=== PATIENT | female | born 1970 | race African-American/Black ===

== ENCOUNTER 2020-07-23 09:16 | Emergency (ER) | payer MEDICAID, OTHER ==
[~2020-07-23] VITALS: Ht 162.6 cm; Wt 68.5 kg
[2020-07-23 09:16] VITALS: BP 115/65
[2020-07-23] MEDS ORDERED: DEXAMETHASONE SOD PHOSPHATE 10 MG/ML VIAL ONE (09:39)
[2020-07-23] MEDS ORDERED: MORPHINE SULFATE INJ 4 MG/ML DISP.SYRIN ONE (09:39)
[2020-07-23] MEDS ORDERED: ONDANSETRON 4 MG TAB.RAPDIS ONE ×2 (09:40→09:49)
[2020-07-23] MEDS ORDERED: LORAZEPAM INJ 2 MG/ML VIAL ONE (09:40)
[2020-07-23] MEDS: MORPHINE SULFATE INJ 4 MG/ML DISP.SYRIN IM ONE (09:53)
[2020-07-23] MEDS: LORAZEPAM INJ 2 MG/ML VIAL IM ONE (09:53)
[2020-07-23] MEDS: ONDANSETRON 4 MG TAB.RAPDIS SL ONE (09:54)
[2020-07-23] MEDS: DEXAMETHASONE SOD PHOSPHATE 10 MG/ML VIAL IM ONE (09:54)
== END 2020-07-23 10:12 | disposition home or self-care (01) ==
LOC: ER 09:33
DX: M54.30 Sciatica, unspecified side (principal); M54.9 Dorsalgia, unspecified; Z88.6 Allergy status to analgesic agent; Z88.8 Allergy status to other drugs, medicaments and biological substances
CPT/HCPCS: 96372 ×2; 99284; J1100; J2060; J2270; Q0162

== ENCOUNTER 2020-07-30 13:40 | Emergency (ER) | payer OTHER ==
[~2020-07-30] VITALS: Ht 162.6 cm; Wt 68.9 kg
--- NOTE | 2020-07-30 13:45 | NUR ---
pt bib self c/o lower back pain x 2 days 810 pain scale. vs checked. awaiting md cohen.
[2020-07-30] MEDS ORDERED: ONDANSETRON 4 MG TAB.RAPDIS SL ONE (14:30)
[2020-07-30] MEDS ORDERED: MORPHINE SULFATE INJ 2 MG/ML DISP.SYRIN IM ONE (14:30)
[2020-07-30] MEDS ORDERED: ONDANSETRON 4 MG TAB.RAPDIS ONE (14:33)
[2020-07-30] MEDS ORDERED: MORPHINE SULFATE INJ 4 MG/ML DISP.SYRIN ONE (14:33)
[2020-07-30 15:22] VITALS: BP 121/88
--- NOTE | 2020-07-30 15:22 | NUR ---
Patient discharged to home in stable condition. Written and verbal after care instructions given. Patient verbalizes understanding of instruction.
== END 2020-07-30 15:22 | disposition home or self-care (01) ==
LOC: ER 13:46
DX: M54.41 Lumbago with sciatica, right side (principal); Z88.6 Allergy status to analgesic agent; Z88.8 Allergy status to other drugs, medicaments and biological substances
CPT/HCPCS: 96372; 99283; J2270; Q0162

== ENCOUNTER 2020-08-06 13:40 | Emergency (ER) | payer OTHER ==
[~2020-08-06] VITALS: Ht 162.6 cm; Wt 68.0 kg
[2020-08-06 13:45] VITALS: BP 125/70
--- NOTE | 2020-08-06 13:45 | NUR ---
pt daliaseanum c/o toothache x2days. states that 'i broke a tooth'. vs checked. awaiting md cohen.
--- NOTE | 2020-08-06 14:24 | NUR ---
Patient discharged to home in stable condition. Written and verbal after care instructions given. Patient verbalizes understanding of instruction.
== END 2020-08-06 14:25 | disposition home or self-care (01) ==
LOC: ER 13:43
DX: K08.89 Other specified disorders of teeth and supporting structures (principal); K02.9 Dental caries, unspecified; G43.909 Migraine, unspecified, not intractable, without status migrainosus; Z88.6 Allergy status to analgesic agent

== ENCOUNTER 2020-08-12 12:20 | Emergency (ER) | payer OTHER ==
[~2020-08-12] VITALS: Ht 162.6 cm; Wt 68.0 kg
--- NOTE | 2020-08-12 12:35 | NUR ---
bib self c/o upper and lower back pain Hx sciatica, takes norco 5/325mg. c/o 06/24 pain. vs checked. awaiting md cohen.
[2020-08-12] MEDS ORDERED: MORPHINE SULFATE INJ 10 MG/ML DISP.SYRIN IM ONE (13:00)
[2020-08-12] MEDS ORDERED: MORPHINE SULFATE INJ 4 MG/ML DISP.SYRIN ONE (13:07)
[2020-08-12 13:17] VITALS: BP 156/78
== END 2020-08-12 13:17 | disposition home or self-care (01) ==
LOC: ER 12:29
DX: M54.41 Lumbago with sciatica, right side (principal); G43.909 Migraine, unspecified, not intractable, without status migrainosus; Z88.6 Allergy status to analgesic agent; Z88.8 Allergy status to other drugs, medicaments and biological substances
CPT/HCPCS: 96372; 99283; J2270

== ENCOUNTER 2020-08-23 16:40 | Emergency (ER) | payer OTHER ==
[~2020-08-23] VITALS: Ht 162.6 cm; Wt 68.5 kg
[2020-08-23 17:01] VITALS: BP 128/101
[2020-08-23] MEDS ORDERED: HYDROCODONE/APAP 5/325MG TABLET PO ONE (17:30)
[2020-08-23] MEDS ORDERED: HYDROCODONE/APAP 5/325MG TABLET ONE (17:37)
--- NOTE | 2020-08-23 17:59 | NUR ---
PATIENT A/OX4, BREATHING EVEN AND UNLABORED, NO SOB NOTED. NEEDS ATTENDED. Patient discharged to home in stable condition. Written and verbal after care instructions given. Patient verbalizes understanding of instruction.
== END 2020-08-23 17:59 | disposition home or self-care (01) ==
LOC: ER 16:44
DX: K08.89 Other specified disorders of teeth and supporting structures (principal); G43.909 Migraine, unspecified, not intractable, without status migrainosus; Z76.5 Malingerer [conscious simulation]; Z88.6 Allergy status to analgesic agent; Z88.8 Allergy status to other drugs, medicaments and biological substances

== ENCOUNTER 2020-08-31 10:20 | Emergency (ER) | payer OTHER ==
[~2020-08-31] VITALS: Ht 165.1 cm; Wt 65.8 kg
--- NOTE | 2020-08-31 10:36 | NUR ---
pt refused to be seen at this time
[2020-08-31 10:54] VITALS: BP 134/77
[2020-08-31] MEDS ORDERED: HYDROCODONE/APAP 5/325MG TABLET PO ONE (11:00)
[2020-08-31] MEDS ORDERED: HYDROCODONE/APAP 5/325MG TABLET ONE (11:14)
--- NOTE | 2020-08-31 11:28 | NUR ---
Patient eloped from facility. ER MD notified.
== END 2020-08-31 11:29 | disposition left against medical advice (07) ==
LOC: ER 10:25
DX: M54.9 Dorsalgia, unspecified (principal); G43.909 Migraine, unspecified, not intractable, without status migrainosus; Z88.6 Allergy status to analgesic agent; Z88.8 Allergy status to other drugs, medicaments and biological substances

== ENCOUNTER 2020-09-07 10:08 | Emergency (ER) | payer OTHER ==
[~2020-09-07] VITALS: Ht 162.6 cm; Wt 65.8 kg
[2020-09-07 11:30] VITALS: BP 130/79
[2020-09-07] MEDS ORDERED: HYDROCODONE/APAP 5/325MG TABLET ONE (12:17)
--- NOTE | 2020-09-07 12:22 | NUR ---
Patient discharged to home in stable condition. Written and verbal after care instructions given. Patient verbalizes understanding of instruction. Pt ambulatory with a steady gait. Pt is picked up by her
[2020-09-07] MEDS ORDERED: HYDROCODONE/APAP 5/325MG TABLET PO ONE (12:30)
== END 2020-09-07 12:23 | disposition home or self-care (01) ==
LOC: ER 10:11
DX: M54.41 Lumbago with sciatica, right side (principal); G89.29 Other chronic pain; G43.909 Migraine, unspecified, not intractable, without status migrainosus; Z88.6 Allergy status to analgesic agent

== ENCOUNTER 2020-10-10 11:58 | Emergency (ER) | payer OTHER ==
[~2020-10-10] VITALS: Ht 162.6 cm; Wt 68.0 kg
[2020-10-10 12:10] VITALS: BP 134/81
--- NOTE | 2020-10-10 12:49 | NUR ---
PT LEFT WITHOUT BEING SEEN BY ER . AWARE.
== END 2020-10-10 12:51 | disposition left against medical advice (07) ==
LOC: ER 12:09
DX: M54.9 Dorsalgia, unspecified (principal); Z53.21 Procedure and treatment not carried out due to patient leaving prior to being seen by health care provider

== ENCOUNTER 2020-10-15 15:54 | Emergency (ER) | payer OTHER ==
[~2020-10-15] VITALS: Ht 162.6 cm; Wt 73.0 kg
--- NOTE | 2020-10-15 16:32 | NUR ---
CALLED TO TRIAGE NO ANSWER.
--- NOTE | 2020-10-15 16:50 | NUR ---
CALLED TO TRIAGE NO ANSWER.
--- NOTE | 2020-10-15 16:56 | NUR ---
LEFT BEFORE TRIAGE. MD AWARE.
[2020-10-15 17:10] VITALS: BP 125/70
== END 2020-10-15 18:05 | disposition left against medical advice (07) ==
LOC: ER 16:00
DX: Z53.21 Procedure and treatment not carried out due to patient leaving prior to being seen by health care provider (principal); G89.29 Other chronic pain; M54.5 Low back pain; G43.909 Migraine, unspecified, not intractable, without status migrainosus

== ENCOUNTER 2020-10-20 10:26 | Emergency (ER) | payer OTHER ==
[~2020-10-20] VITALS: Ht 162.6 cm; Wt 72.6 kg
[2020-10-20 10:33] VITALS: BP 118/80
[2020-10-20] MEDS ORDERED: HYDROCODONE/APAP 10/325MG TABLET ONE (11:09)
[2020-10-20] MEDS: HYDROCODONE/APAP 10/325MG TABLET PO ONE (11:10)
--- NOTE | 2020-10-20 11:10 | NUR ---
Patient discharged to home in stable condition. Written and verbal after care instructions given. Patient verbalizes understanding of instruction.
== END 2020-10-20 11:11 | disposition home or self-care (01) ==
LOC: ER 10:30
DX: M54.41 Lumbago with sciatica, right side (principal); M54.42 Lumbago with sciatica, left side; G89.29 Other chronic pain; G43.909 Migraine, unspecified, not intractable, without status migrainosus; Z76.0 Encounter for issue of repeat prescription; Z88.6 Allergy status to analgesic agent

== ENCOUNTER 2020-10-29 17:09 | Emergency (ER) | payer OTHER ==
[~2020-10-29] VITALS: Ht 162.6 cm; Wt 72.6 kg
[2020-10-29 17:48] VITALS: BP 137/74
--- NOTE | 2020-10-29 17:50 | NUR ---
PATIENT CAME TO ER BED 1 WITH COMPLAIN OF CHRONIC BACK PAIN. PER PATIENT SHE HAS AN APPOINTMENT NEXT FRIDAY BUT THE PATIENT IS WORST TODAY AND WANT TO GET PAIN MEDICATINON AND PRESCIPTION. PATIENT IS ALERT AND ORIENTED X4. IN ROOM AIR AND DENIES SOB. RESPIRATION REGULAR AND UNLABORED.
[2020-10-29] MEDS ORDERED: HYDROCODONE/APAP 5/325MG TABLET ONE (18:06)
[2020-10-29] MEDS ORDERED: ONDANSETRON 4 MG TAB.RAPDIS ONE (18:06)
[2020-10-29] MEDS ORDERED: HYDR-4303 PO (18:08)
[2020-10-29] MEDS ORDERED: ONDA4TAB5 PO (18:08)
--- NOTE | 2020-10-29 18:11 | NUR ---
ADMINISTERED ORDERED NORCO 5/325 1 TAB AND ZOFRAN 4 MG 1 TAB. NO ADVERSE EFECTS NOTED.
--- NOTE | 2020-10-29 18:21 | NUR ---
Patient discharged to home in stable condition. Written and verbal after care instructions given. Patient verbalizes understanding of instruction. The patient has stable gait and getting picked up by family. The patient left the hospital in stable condition.
[2020-10-29] MEDS ORDERED: ONDANSETRON 4 MG TAB.RAPDIS SL ONE (18:30)
[2020-10-29] MEDS ORDERED: HYDROCODONE/APAP 5/325MG TABLET PO ONE (18:30)
== END 2020-10-29 18:20 | disposition home or self-care (01) ==
LOC: ER 17:16
DX: M54.42 Lumbago with sciatica, left side (principal); G89.29 Other chronic pain; G43.909 Migraine, unspecified, not intractable, without status migrainosus; Z88.6 Allergy status to analgesic agent; Z88.8 Allergy status to other drugs, medicaments and biological substances; Z79.899 Other long term (current) drug therapy
CPT/HCPCS: 99283; Q0162

== ENCOUNTER 2020-11-12 15:37 | Emergency (ER) | payer OTHER ==
[~2020-11-12] VITALS: Ht 162.6 cm; Wt 73.0 kg
[~2020-11-12 15:37] MED LIST: HYDR-4303 PO; ONDA4TAB5 PO
[2020-11-12 15:40] VITALS: BP 146/73
[2020-11-12] MEDS ORDERED: LORATADINE 10 MG TABLET PO SCH (16:00)
[2020-11-12] MEDS ORDERED: MOME17SP BNOSTRILS (16:03)
[2020-11-12] MEDS ORDERED: AMOX500T2 PO (16:03)
[2020-11-12] MEDS ORDERED: LORATADINE 10 MG TABLET ONE (16:03)
[2020-11-12] MEDS ORDERED: LORA10TA7 PO (16:03)
--- NOTE | 2020-11-12 16:21 | NUR ---
Patient discharged to home in stable condition. Written and verbal after care instructions given. Patient verbalizes understanding of instruction. Pt ambulatory with a steady gait
== END 2020-11-12 16:23 | disposition home or self-care (01) ==
LOC: ER 15:47
DX: J32.9 Chronic sinusitis, unspecified (principal); G43.909 Migraine, unspecified, not intractable, without status migrainosus; Z88.6 Allergy status to analgesic agent; Z88.8 Allergy status to other drugs, medicaments and biological substances; Z79.899 Other long term (current) drug therapy

== ENCOUNTER 2020-11-17 19:06 | Emergency (ER) | payer OTHER ==
[~2020-11-17] VITALS: Ht 162.6 cm; Wt 73.0 kg
[~2020-11-17 19:06] MED LIST changes: +AMOX500T2 PO; +LORA10TA7 PO; +MOME17SP BNOSTRILS
[2020-11-17 19:16] VITALS: BP 111/75
[2020-11-17] MEDS ORDERED: DOXY100C2 PO (19:31)
[2020-11-17] MEDS ORDERED: PRED20TA PO (19:31)
== END 2020-11-17 19:39 | disposition home or self-care (01) ==
LOC: ER 19:06
DX: J32.9 Chronic sinusitis, unspecified (principal); G89.29 Other chronic pain; M54.40 Lumbago with sciatica, unspecified side; Z88.6 Allergy status to analgesic agent; Z88.8 Allergy status to other drugs, medicaments and biological substances; Z79.899 Other long term (current) drug therapy

== ENCOUNTER 2020-11-24 16:59 | Emergency (ER) | payer OTHER ==
[~2020-11-24 16:59] MED LIST changes: +DOXY100C2 PO; +PRED20TA PO
--- NOTE | 2020-11-24 17:26 | NUR ---
pt requesting to cancel registration and left prior to triage
== END 2020-11-24 17:00 | disposition home or self-care (01) ==
LOC: ER 16:59
DX: Z75.3 Unavailability and inaccessibility of health-care facilities (principal)

== ENCOUNTER 2020-11-28 18:55 | Emergency (ER) | payer OTHER ==
[~2020-11-28] VITALS: Ht 162.6 cm; Wt 73.0 kg
[2020-11-28 19:15] VITALS: BP 109/69
[2020-11-28] MEDS ORDERED: MORPHINE SULFATE INJ 4 MG/ML DISP.SYRIN ONE (19:53)
[2020-11-28] MEDS ORDERED: ONDANSETRON 4 MG TAB.RAPDIS ONE (19:53)
[2020-11-28] MEDS ORDERED: MORPHINE SULFATE INJ 2 MG/ML DISP.SYRIN IM ONE (20:00)
[2020-11-28] MEDS ORDERED: ONDANSETRON 4 MG TAB.RAPDIS SL ONE (20:00)
== END 2020-11-28 20:08 | disposition home or self-care (01) ==
LOC: ER 18:58
DX: M25.461 Effusion, right knee (principal); G89.29 Other chronic pain; G43.909 Migraine, unspecified, not intractable, without status migrainosus; Z88.6 Allergy status to analgesic agent; Z88.8 Allergy status to other drugs, medicaments and biological substances; Z79.899 Other long term (current) drug therapy
CPT/HCPCS: 96372; 99283; J2270; Q0162

== ENCOUNTER 2020-12-01 11:31 | Emergency (ER) | payer OTHER ==
[~2020-12-01] VITALS: Ht 162.6 cm; Wt 74.8 kg
[2020-12-01 11:37] VITALS: BP 140/78
[2020-12-01] MEDS ORDERED: HYDROCODONE/APAP 10/325MG TABLET ONE (12:24)
[2020-12-01] MEDS ORDERED: HYDROCODONE/APAP 10/325MG TABLET PO ONE (12:30)
--- NOTE | 2020-12-01 12:35 | NUR ---
Patient discharged to home in stable condition. Written and verbal after care instructions given. Patient verbalizes understanding of instruction.
== END 2020-12-01 12:36 | disposition home or self-care (01) ==
LOC: ER 11:36
DX: M54.41 Lumbago with sciatica, right side (principal); G89.29 Other chronic pain; G43.909 Migraine, unspecified, not intractable, without status migrainosus; Z88.6 Allergy status to analgesic agent; Z88.8 Allergy status to other drugs, medicaments and biological substances; Z79.899 Other long term (current) drug therapy

== ENCOUNTER 2020-12-10 14:23 | Emergency (ER) | payer OTHER ==
[~2020-12-10] VITALS: Ht 162.6 cm; Wt 73.5 kg
[2020-12-10 14:33] VITALS: BP 115/62
[2020-12-10] MEDS ORDERED: HYDR-500 PO (14:39)
[2020-12-10] MEDS ORDERED: HYDR453.3 TP (14:39)
--- NOTE | 2020-12-10 14:41 | NUR ---
Patient discharged to home in stable condition. Written and verbal after care instructions given. Patient verbalizes understanding of instruction.
[2020-12-10] MEDS ORDERED: hydrOXYzine 10 MG TABLET ONE (14:53)
[2020-12-10] MEDS ORDERED: hydrOXYzine 10 MG TABLET PO ONE (15:00)
== END 2020-12-10 14:41 | disposition home or self-care (01) ==
LOC: ER 14:26
DX: L30.9 Dermatitis, unspecified (principal); G43.909 Migraine, unspecified, not intractable, without status migrainosus; Z88.6 Allergy status to analgesic agent; Z88.8 Allergy status to other drugs, medicaments and biological substances; Z79.899 Other long term (current) drug therapy
CPT/HCPCS: 99283; Q0177

== ENCOUNTER 2020-12-13 13:06 | Emergency (ER) | payer OTHER ==
[~2020-12-13] VITALS: Ht 162.6 cm; Wt 73.5 kg
[~2020-12-13 13:06] MED LIST changes: +HYDR-500 PO; +HYDR453.3 TP
[2020-12-13 13:14] VITALS: BP 112/73
--- NOTE | 2020-12-13 14:40 | NUR ---
DR ESPARZA WENT TO SEE PATIENT BUT SHE WAS NOWHERE TO BE FOUND
== END 2020-12-13 14:54 | disposition left against medical advice (07) ==
LOC: ER 13:09
DX: Z53.21 Procedure and treatment not carried out due to patient leaving prior to being seen by health care provider (principal); G43.909 Migraine, unspecified, not intractable, without status migrainosus; Z88.6 Allergy status to analgesic agent; Z88.8 Allergy status to other drugs, medicaments and biological substances; Z79.899 Other long term (current) drug therapy

== ENCOUNTER 2020-12-17 13:39 | Emergency (ER) | payer OTHER ==
--- NOTE | 2020-12-17 14:30 | NUR ---
CALLED TO TRIAGE NO ANSWER
--- NOTE | 2020-12-17 14:50 | NUR ---
CALLED TO TRIAGE NO ANSWER
--- NOTE | 2020-12-17 14:53 | NUR ---
Patient left without being triage.
== END 2020-12-17 14:54 | disposition home or self-care (01) ==
LOC: ER 13:43
DX: Z53.21 Procedure and treatment not carried out due to patient leaving prior to being seen by health care provider (principal)

== ENCOUNTER 2021-01-01 15:13 | Emergency (ER) | payer OTHER ==
[~2021-01-01] VITALS: Ht 162.6 cm; Wt 73.5 kg
[2021-01-01 15:22] VITALS: BP 101/73
[2021-01-01] MEDS ORDERED: predniSONE 10 MG TABLET ONE (15:44)
[2021-01-01] MEDS ORDERED: predniSONE 20 MG TABLET ONE (15:45)
[2021-01-01] MEDS ORDERED: ALBUTEROL FS 2.5 MG/3 ML VIAL.NEB ONE (15:59)
[2021-01-01] MEDS ORDERED: IPRATROPIUM NEB FS 0.5 MG/2.5 ML AMPUL.NEB ONE (15:59)
[2021-01-01] MEDS ORDERED: predniSONE 50 MG TABLET PO ONE (16:00)
[2021-01-01] MEDS ORDERED: IPRATROPIUM NEB FS 0.5 MG/2.5 ML AMPUL.NEB NEB ONE (16:00)
[2021-01-01] MEDS ORDERED: ALBUTEROL FS 2.5 MG/3 ML VIAL.NEB NEB ONE (16:00)
[2021-01-01] MEDS ORDERED: PRED50TA PO (16:43)
[2021-01-01] MEDS ORDERED: ALBU8.5H8 INH (16:43)
[2021-01-01] MEDS ORDERED: AMOX-430 PO (16:43)
[2021-01-01] MEDS ORDERED: IBUP-1955 PO (16:44)
[2021-01-01] MEDS ORDERED: FLUT1DIS INH (16:44)
--- NOTE | 2021-01-01 16:57 | NUR ---
Patient discharged to home in stable condition. Written and verbal after care instructions given. Patient verbalizes understanding of instruction. Pt ambulatory with a steady gait
== END 2021-01-01 16:58 | disposition home or self-care (01) ==
LOC: ER 15:13
DX: J32.0 Chronic maxillary sinusitis (principal); J45.909 Unspecified asthma, uncomplicated; G43.909 Migraine, unspecified, not intractable, without status migrainosus; Z98.890 Other specified postprocedural states; Z88.6 Allergy status to analgesic agent; Z88.8 Allergy status to other drugs, medicaments and biological substances; Z79.899 Other long term (current) drug therapy
CPT/HCPCS: 94640; 99283; J7512 ×2

== ENCOUNTER → 2021-01-28 | Emergency (ER) | payer OTHER ==
[~2021-01-28] VITALS: Ht 162.6 cm; Wt 73.9 kg
[~2021-01-28] MED LIST changes: +ALBU8.5H8 INH; +AMOX-430 PO; +FLUT1DIS INH; +IBUP-1955 PO; +PENI500T PO; +PRED50TA PO
[2021-01-28 18:23] VITALS: BP 146/82
== END | disposition home or self-care (01) ==
LOC: ER 18:13
DX: K08.89 Other specified disorders of teeth and supporting structures (principal); J32.1 Chronic frontal sinusitis; J45.901 Unspecified asthma with (acute) exacerbation; Z76.5 Malingerer [conscious simulation]; G89.29 Other chronic pain; Z88.6 Allergy status to analgesic agent; Z88.8 Allergy status to other drugs, medicaments and biological substances; Z79.899 Other long term (current) drug therapy

== ENCOUNTER 2021-02-06 13:40 | Emergency (ER) | payer OTHER ==
[~2021-02-06] VITALS: Ht 162.6 cm; Wt 73.9 kg
[2021-02-06 13:52] VITALS: BP 135/71
[2021-02-06] MEDS ORDERED: HYDR50TA61 PO (14:51)
[2021-02-06] MEDS ORDERED: TRIA15OI9 TP (14:54)
[2021-02-06] MEDS ORDERED: hydrOXYzine PAMOATE 25 MG CAPSULE PO ONE (15:00)
== END 2021-02-06 15:22 | disposition home or self-care (01) ==
LOC: ER 13:40
DX: L50.8 Other urticaria (principal); G43.909 Migraine, unspecified, not intractable, without status migrainosus; G89.29 Other chronic pain; M54.5 Low back pain; J45.909 Unspecified asthma, uncomplicated; Z98.890 Other specified postprocedural states; Z88.6 Allergy status to analgesic agent; Z88.8 Allergy status to other drugs, medicaments and biological substances; Z79.899 Other long term (current) drug therapy

== ENCOUNTER 2021-02-08 18:41 | Emergency (ER) | payer OTHER ==
[~2021-02-08] VITALS: Ht 162.6 cm; Wt 73.5 kg
[~2021-02-08 18:41] MED LIST changes: +HYDR50TA61 PO; +TRIA15OI9 TP
[2021-02-08 18:59] VITALS: BP 124/86
[2021-02-08] MEDS ORDERED: DIPH50SY IJ (19:09)
[2021-02-08] MEDS ORDERED: AZIT250T PO (19:09)
== END 2021-02-08 19:19 | disposition home or self-care (01) ==
LOC: ER 18:48
DX: J40 Bronchitis, not specified as acute or chronic (principal); L50.9 Urticaria, unspecified; G43.909 Migraine, unspecified, not intractable, without status migrainosus; Z88.6 Allergy status to analgesic agent; Z88.8 Allergy status to other drugs, medicaments and biological substances; Z79.899 Other long term (current) drug therapy

== ENCOUNTER 2021-02-16 16:13 | Emergency (ER) | payer OTHER ==
[~2021-02-16] VITALS: Ht 162.6 cm; Wt 72.6 kg
[~2021-02-16 16:13] MED LIST changes: +AZIT250T PO; +DIPH50SY IJ
[2021-02-16 16:20] VITALS: BP 137/67
--- NOTE | 2021-02-16 16:25 | NUR ---
The patient is bibs for c/o having had cough/congestion x1.5wks was seen here and given meds - NOT helping. The patient is in room air and respiration regular and unlabored. Will continue to monitor the patient.
[2021-02-16] MEDS ORDERED: ALBU18HF2 INH (16:42)
[2021-02-16] MEDS ORDERED: AMOX-430 PO (16:42)
[2021-02-16] MEDS ORDERED: PRED50TA PO (16:42)
[2021-02-16] MEDS ORDERED: PROM118S5 PO (16:42)
[2021-02-16] MEDS ORDERED: ALBU8.5H8 INH (16:42)
[2021-02-16] MEDS ORDERED: BENZ-13 PO (16:42)
--- NOTE | 2021-02-16 16:54 | NUR ---
Patient discharged to home in stable condition. Written and verbal after care instructions given. Patient verbalizes understanding of instruction.
== END 2021-02-16 16:54 | disposition home or self-care (01) ==
LOC: ER 16:27
DX: J40 Bronchitis, not specified as acute or chronic (principal); Z76.5 Malingerer [conscious simulation]; Z76.0 Encounter for issue of repeat prescription; G43.909 Migraine, unspecified, not intractable, without status migrainosus; Z88.6 Allergy status to analgesic agent; Z88.8 Allergy status to other drugs, medicaments and biological substances; Z79.899 Other long term (current) drug therapy

== ENCOUNTER 2021-02-23 17:54 | Emergency (ER) | payer OTHER ==
[~2021-02-23] VITALS: Ht 162.6 cm; Wt 73.5 kg
[~2021-02-23 17:54] MED LIST changes: +ALBU18HF2 INH; +BENZ-13 PO; +PROM118S5 PO
[2021-02-23 18:20] VITALS: BP 105/56
--- NOTE | 2021-02-23 18:34 | NUR ---
dr. hidalgo at bedside for eval.
--- NOTE | 2021-02-23 18:52 | NUR ---
PATIENT ELOPED PRIOR TO DISCHARGE [employer].
[2021-02-23] MEDS ORDERED: predniSONE 20 MG TABLET PO ONE (19:00)
[2021-02-23] MEDS ORDERED: IPRATROPIUM NEB FS 0.5 MG/2.5 ML AMPUL.NEB NEB ONE (19:00)
[2021-02-23] MEDS ORDERED: ALBUTEROL FS 2.5 MG/3 ML VIAL.NEB CONTNEB ONE (19:00)
== END 2021-02-23 18:55 | disposition left against medical advice (07) ==
LOC: ER 17:56
DX: R05 Cough (principal); G43.909 Migraine, unspecified, not intractable, without status migrainosus; G89.4 Chronic pain syndrome; Z88.6 Allergy status to analgesic agent; Z88.8 Allergy status to other drugs, medicaments and biological substances; Z79.899 Other long term (current) drug therapy

== ENCOUNTER 2021-03-02 16:39 | Emergency (ER) | payer OTHER ==
[~2021-03-02] VITALS: Ht 162.6 cm; Wt 73.5 kg
[2021-03-02 16:49] VITALS: BP 139/79
[2021-03-02] MEDS ORDERED: MAG10ORA PO (17:04)
[2021-03-02] MEDS ORDERED: FAMO-131 PO (17:04)
[2021-03-02] MEDS ORDERED: MAG HYDROX/AL HYDROX/SIMETH 30 ML UDC ONE (17:07)
[2021-03-02] MEDS ORDERED: LIDOCAINE VISCOUS 2% UD 15 ML UDC ONE (17:07)
[2021-03-02] MEDS ORDERED: LIDOCAINE VISCOUS 2% UD 15 ML UDC MM ONE (17:30)
[2021-03-02] MEDS ORDERED: MAG HYDROX/AL HYDROX/SIMETH 30 ML UDC PO ONE (17:30)
== END 2021-03-02 17:12 | disposition home or self-care (01) ==
LOC: ER 16:47
DX: K21.9 Gastro-esophageal reflux disease without esophagitis (principal); F60.89 Other specific personality disorders; G43.909 Migraine, unspecified, not intractable, without status migrainosus; G89.4 Chronic pain syndrome; Z88.6 Allergy status to analgesic agent; Z79.899 Other long term (current) drug therapy

== ENCOUNTER 2021-11-07 13:07 | Emergency (ER) | payer MEDICAID, OTHER ==
[~2021-11-07] VITALS: Ht 162.6 cm; Wt 77.1 kg
[~2021-11-07 13:07] MED LIST changes: +FAMO-131 PO; +MAG10ORA PO
[2021-11-07 13:30] VITALS: BP 130/83
--- NOTE | 2021-11-07 13:35 | NUR ---
The patient bibs for c/o low back pain 12/23 and difficulty urinating x 3 days. Will continue to monitor the patient.
[2021-11-07 14:34] LABS: BILIRUBIN,URINE NEGATIVE (NEGATIVE); COLOR,URINE YELLOW (YELLOW); LEUKOCYTE ESTERASE ,URINE SMALL (NEGATIVE); NITRITE, URINE POSITIVE (NEGATIVE); PROTEIN,URINE NEGATIVE (NEGATIVE); UGLUCOSE NEGATIVE (NEGATIVE); UROBILINOGEN,URINE 0.2 EU/dL (0.2)
[2021-11-07] MEDS ORDERED: ALBUTEROL FS 2.5 MG/3 ML VIAL.NEB NEB ONE (15:00)
[2021-11-07] MEDS ORDERED: CYCLOBENZAPRINE 10 MG TABLET PO ONE (15:00)
[2021-11-07] MEDS ORDERED: predniSONE 20 MG TABLET PO ONE (15:00)
[2021-11-07] MEDS ORDERED: IPRATROPIUM NEB FS 0.5 MG/2.5 ML AMPUL.NEB NEB ONE (15:00)
[2021-11-07] MEDS ORDERED: ACETAMINOPHEN ES 500 MG TABLET PO ONE (15:00)
[2021-11-07] MEDS ORDERED: predniSONE 20 MG TABLET ONE (15:06)
[2021-11-07] MEDS ORDERED: ACETAMINOPHEN ES 500 MG TABLET ONE (15:06)
[2021-11-07] MEDS ORDERED: CYCLOBENZAPRINE 10 MG TABLET ONE (15:07)
[2021-11-07] MEDS ORDERED: IPRATROPIUM NEB FS 0.5 MG/2.5 ML AMPUL.NEB ONE (15:13)
[2021-11-07] MEDS ORDERED: ALBUTEROL FS 2.5 MG/3 ML VIAL.NEB ONE (15:13)
[2021-11-07] MEDS ORDERED: ACET-2605 PO (15:30)
[2021-11-07] MEDS ORDERED: BENZ-13 PO (15:30)
[2021-11-07] MEDS ORDERED: SULF1TAB48 PO (15:30)
[2021-11-07] MEDS ORDERED: ALBU18HF2 INH (15:30)
[2021-11-07] MEDS ORDERED: CYCL5TAB PO (15:30)
[2021-11-07] MEDS ORDERED: GUAI1TBM19 PO (15:30)
[2021-11-07 16:11] LABS: WBC,URINE 81-100 /HPF (0-3)
[2021-11-07 16:12] LABS: BACTERIA,URINE 4+ /HPF (None Seen); SQUAMOUS EPITHELIAL CELL,UR Few /HPF (None Seen)
[2021-11-07] MEDS ORDERED: TRAMADOL HCL 50 MG TABLET ONE (16:13)
--- NOTE | 2021-11-07 16:14 | NUR ---
Patient discharged to home in stable condition. Written and verbal after care instructions given. Patient verbalizes understanding of instruction.
[2021-11-07] MEDS ORDERED: TRAMADOL HCL 50 MG TABLET PO ONE (16:30)
== END 2021-11-07 16:14 | disposition home or self-care (01) ==
LOC: ER 13:24
DX: N39.0 Urinary tract infection, site not specified (principal); M54.50 Low back pain, unspecified; J45.909 Unspecified asthma, uncomplicated; G43.909 Migraine, unspecified, not intractable, without status migrainosus; G89.4 Chronic pain syndrome; Z88.6 Allergy status to analgesic agent; Z88.8 Allergy status to other drugs, medicaments and biological substances; Z79.899 Other long term (current) drug therapy
CPT/HCPCS: 81001; 87077; 87086; 87186; 94640; 99284; J7512

== ENCOUNTER 2021-12-23 16:15 | Emergency (ER) | payer OTHER ==
[~2021-12-23] VITALS: Ht 162.6 cm; Wt 76.2 kg
[~2021-12-23 16:15] MED LIST changes: +ACET-2605 PO; +CYCL5TAB PO; +GUAI1TBM19 PO; +SULF1TAB48 PO
[2021-12-23 16:19] VITALS: BP 121/69
[2021-12-23] MEDS ORDERED: CYCL10TA9 PO (17:26)
[2021-12-23] MEDS ORDERED: AMOX500T2 PO (17:26)
--- NOTE | 2021-12-23 17:45 | NUR ---
Patient discharged to home in stable condition. Written and verbal after care instructions given. Patient verbalizes understanding of instruction. Pt ambulatory with a steady gait
== END 2021-12-23 18:41 | disposition home or self-care (01) ==
LOC: ER 16:20
DX: S01.511D Laceration without foreign body of lip, subsequent encounter (principal); G89.29 Other chronic pain; M54.42 Lumbago with sciatica, left side; G43.909 Migraine, unspecified, not intractable, without status migrainosus; Z88.8 Allergy status to other drugs, medicaments and biological substances; Z79.1 Long term (current) use of non-steroidal anti-inflammatories (NSAID); Z79.51 Long term (current) use of inhaled steroids; Z79.52 Long term (current) use of systemic steroids; Z79.899 Other long term (current) drug therapy; X58.XXXD Exposure to other specified factors, subsequent encounter

== ENCOUNTER 2022-01-27 12:10 | Emergency (ER) | payer OTHER ==
[~2022-01-27] VITALS: Ht 162.6 cm; Wt 70.8 kg
[~2022-01-27 12:10] MED LIST changes: +CYCL10TA9 PO
[2022-01-27 12:18] VITALS: BP 134/70
[2022-01-27] MEDS ORDERED: TRAM-351 PO (12:54)
[2022-01-27] MEDS ORDERED: CEPH250C PO (12:54)
[2022-01-27] MEDS ORDERED: TRAMADOL HCL 50 MG TABLET ONE (12:59)
[2022-01-27] MEDS ORDERED: LIDOCAINE VISCOUS 2% UD 15 ML UDC ONE (12:59)
[2022-01-27] MEDS ORDERED: MAG HYDROX/AL HYDROX/SIMETH 30 ML UDC ONE (12:59)
[2022-01-27] MEDS ORDERED: MAG HYDROX/AL HYDROX/SIMETH 30 ML UDC PO ONE (13:00)
[2022-01-27] MEDS ORDERED: TRAMADOL HCL 50 MG TABLET PO ONE (13:00)
[2022-01-27] MEDS ORDERED: LIDOCAINE VISCOUS 2% UD 15 ML UDC MM ONE (13:00)
--- NOTE | 2022-01-27 13:17 | NUR ---
Patient discharged to home in stable condition. Written and verbal after care instructions given. Patient verbalizes understanding of instruction.
== END 2022-01-27 13:37 | disposition home or self-care (01) ==
LOC: ER 13:34
DX: N39.0 Urinary tract infection, site not specified (principal); G43.909 Migraine, unspecified, not intractable, without status migrainosus; G89.29 Other chronic pain; Z87.19 Personal history of other diseases of the digestive system; Z87.39 Personal history of other diseases of the musculoskeletal system and connective tissue; Z88.8 Allergy status to other drugs, medicaments and biological substances; Z79.899 Other long term (current) drug therapy

== ENCOUNTER 2022-04-27 08:05 | Emergency (ER) | payer OTHER ==
[~2022-04-27] VITALS: Ht 162.6 cm; Wt 71.2 kg
[~2022-04-27 08:05] MED LIST changes: +CEPH250C PO; +TRAM-351 PO
--- NOTE | 2022-04-27 08:25 | NUR ---
PT BIBS W/ C/O COUGH X1WK; PT ENDORSES HX OF ASTHMA. TO ER BED 16, AWAITING MD NÚÑEZ.
--- NOTE | 2022-04-27 08:57 | NUR ---
[employer] AT BEDSIDE FOR XRAY
[2022-04-27] MEDS ORDERED: predniSONE 20 MG TABLET ONE (08:58)
--- NOTE | 2022-04-27 08:58 | NUR ---
X RAY AT BEDSIDE
[2022-04-27] MEDS ORDERED: ALBUTEROL FS 2.5 MG/3 ML VIAL.NEB CONTNEB ONE (09:00)
[2022-04-27] MEDS ORDERED: predniSONE 20 MG TABLET PO ONE (09:00)
[2022-04-27] MEDS ORDERED: IPRATROPIUM NEB FS 0.5 MG/2.5 ML AMPUL.NEB NEB ONE (09:00)
[2022-04-27] MEDS ORDERED: IPRATROPIUM NEB FS 0.5 MG/2.5 ML AMPUL.NEB ONE (09:16)
[2022-04-27] MEDS ORDERED: ALBUTEROL FS 2.5 MG/3 ML VIAL.NEB ONE (09:16)
--- NOTE | 2022-04-27 09:20 | NUR ---
RT AT BEDSIDE FOR BREATHING TREATMENT
--- NOTE | 2022-04-27 09:20 | NUR ---
RT Patient received on room air. Breathing tx given and tolerated well. HR 64 SPO2 97%. No respiratory distress noted at this time.
[2022-04-27] MEDS ORDERED: ACETAMINOPHEN 650 MG/20.3 ML UDC PO ONE (09:30)
[2022-04-27] MEDS ORDERED: ACETAMINOPHEN 650 MG/20.3 ML UDC ONE (09:41)
[2022-04-27] MEDS ORDERED: ALBU18HF2 INH (09:55)
[2022-04-27] MEDS ORDERED: METH4TAB3 PO (09:55)
[2022-04-27] MEDS ORDERED: BENZ-13 PO (10:01)
[2022-04-27 10:03] VITALS: BP 130/90
--- NOTE | 2022-04-27 10:03 | NUR ---
Patient discharged to home in stable condition. Written and verbal after care instructions given. Patient verbalizes understanding of instruction.
== END 2022-04-27 10:03 | disposition home or self-care (01) ==
LOC: ER 08:14
DX: J45.901 Unspecified asthma with (acute) exacerbation (principal); G89.4 Chronic pain syndrome; Z88.6 Allergy status to analgesic agent; Z88.8 Allergy status to other drugs, medicaments and biological substances; Z79.899 Other long term (current) drug therapy
CPT/HCPCS: 99283; 71045; 94640; J7512

== ENCOUNTER 2023-04-09 10:47 | Emergency (ER) | payer MEDICAID, OTHER ==
[~2023-04-09] VITALS: Ht 162.6 cm; Wt 73.9 kg
[~2023-04-09 10:47] MED LIST changes: +METH4TAB3 PO
--- NOTE | 2023-04-09 11:28 | NUR ---
PATIENT CAME WITH LOWER ABDOMINAL PAIN,PAIN FULL MICTURATION AND BURNING SENSATION.ALERT AND ORIENTED.ON ROOM AIR.ATTACHED TO MONITOR.
[2023-04-09] MEDS ORDERED: ACETAMINOPHEN ES 500 MG TABLET PO ONE (11:30)
[2023-04-09] MEDS ORDERED: KETOROLAC TROMETHAMINE INJ 30 MG/ML VIAL IV ONE (11:30)
[2023-04-09] MEDS ORDERED: IV NS 0.9% 1,000 ML BAG IV ONE (11:30)
[2023-04-09] MEDS ORDERED: CEFTRIAXONE 1GM BAG (ER ONLY) 50 ML IV ONE (11:30)
--- NOTE | 2023-04-09 11:31 | NUR ---
DR THORNE AT BED SIDE
[2023-04-09 11:58] LABS: BILIRUBIN,URINE NEGATIVE (NEGATIVE); COLOR,URINE YELLOW (YELLOW); LEUKOCYTE ESTERASE ,URINE 3+ (NEGATIVE); NITRITE, URINE NEGATIVE (NEGATIVE); PH,URINE 8.5 (5.0-8.0); PROTEIN,URINE 1+ mg/dl (NEGATIVE); UGLUCOSE NEGATIVE (NEGATIVE); UROBILINOGEN,URINE 0.2 EU/dL (0.2)
--- NOTE | 2023-04-09 12:07 | NUR ---
blood collected and send to lab.
--- NOTE | 2023-04-09 12:08 | NUR ---
urine collected and send to lab.
[2023-04-09 12:14] LABS: BASOPHILS % (AUTO) 0.5 % (0.0-2.0); EOSINOPHILS % (AUTO) 3.5 % (0.0-6.0); HEMATOCRIT 35 % (33-45); HEMOGLOBIN 11.5 g/dL (11.5-14.8); LYMPHOCYTES # (AUTO) 1.8 K/uL (0.8-4.8); LYMPHOCYTES % (AUTO) 22.7 % (20.0-44.0); MEAN CORPUSCULAR HGB CONC 33 g/dl (31.0-36.0); MEAN CORPUSCULAR VOLUME 93 fL (82-100); MONOCYTES # (AUTO) 0.8 K/uL (0.1-1.30); MONOCYTES % (AUTO) 9.5 % (2.0-12.0); NEUTROPHILS # (AUTO) 5.2 K/uL (1.8-8.9); NEUTROPHILS % (AUTO) 63.8 % (43.0-81.0); PLATELET COUNT (AUTO) 358 K/uL (150-450); RED BLOOD CELL COUNT(AUTO) 3.78 MIL/uL (4.0-5.2); WHITE BLOOD COUNT (AUTO) 8.2 K/uL (4.3-11.0)
[2023-04-09 12:20] LABS: BACTERIA,URINE Few /HPF (None Seen); RBC,URINE 0-2 /HPF (0-2); SQUAMOUS EPITHELIAL CELL,UR Rare /HPF (None Seen)
[2023-04-09] MEDS ORDERED: ACETAMINOPHEN ES 500 MG TABLET ONE (12:20)
[2023-04-09 12:21] LABS: CREATININE 0.6 mg/dL (0.6-1.3); POTASSIUM 5.6 mmol/L (3.5-5.1)
[2023-04-09 12:28] LABS: ALBUMIN 3.5 g/dL (3.4-5.0); BILIRUBIN,DIRECT 0.1 mg/dL (0.0-0.2); BILIRUBIN,TOTAL 0.6 mg/dL (0.2-1.0)
[2023-04-09] MEDS ORDERED: CIPR-262 PO (12:30)
--- NOTE | 2023-04-09 12:40 | NUR ---
PT REFUSED IV INSERTIONS WELL IV MEDICATION WAS NOTFIED YAIR.
--- NOTE | 2023-04-09 12:49 | NUR ---
Patient discharged to home in stable condition. Written and verbal after care instructions given. Patient verbalizes understanding of instruction.
[2023-04-09 12:50] VITALS: BP 134/82; TEMP 97; O2SAT 100
== END 2023-04-09 12:51 | disposition home or self-care (01) ==
LOC: ER 10:50
DX: N39.0 Urinary tract infection, site not specified (principal); R10.2 Pelvic and perineal pain; G43.909 Migraine, unspecified, not intractable, without status migrainosus; J44.9 Chronic obstructive pulmonary disease, unspecified; G89.29 Other chronic pain; Z88.8 Allergy status to other drugs, medicaments and biological substances; Z79.899 Other long term (current) drug therapy
CPT/HCPCS: 99283; 85025; 80048; 87086; 83690; 80076; 81001; 36415; J7030

== ENCOUNTER 2024-03-04 12:58 | Emergency (ER) | payer MEDICAID, OTHER ==
[~2024-03-04] VITALS: Ht 162.6 cm; Wt 79.4 kg
[~2024-03-04 12:58] MED LIST changes: +CIPR-262 PO
[2024-03-04 13:08] VITALS: BP 151/89; TEMP 98.1
[2024-03-04] MEDS ORDERED: HYDR-4303 PO (13:35)
[2024-03-04] MEDS ORDERED: HYDROCODONE/APAP 5/325MG TABLET ONE (13:39)
[2024-03-04 13:44] VITALS: O2SAT 99
[2024-03-04] MEDS: HYDROCODONE/APAP 5/325MG TABLET PO ONE (13:44)
== END 2024-03-04 13:45 | disposition home or self-care (01) ==
LOC: ER 13:03
DX: K08.89 Other specified disorders of teeth and supporting structures (principal); G43.909 Migraine, unspecified, not intractable, without status migrainosus; J44.9 Chronic obstructive pulmonary disease, unspecified; G89.4 Chronic pain syndrome; Z76.5 Malingerer [conscious simulation]; Z88.8 Allergy status to other drugs, medicaments and biological substances